=== PATIENT | male | born 1960 | race African-American/Black ===

== ENCOUNTER 2019-05-18 10:30 | Inpatient (IN) | payer OTHER ==
[2019-05-18 10:53] VITALS: BMI 31.4
--- NOTE | 2019-05-18 12:18 | HP ---
CIWA Score Nausea/Vomitin Muscle Tremors: 4-Moderate,w/Arms Extend Anxiety: 4-Mod. Anxious/Guarded Agitation: 1-Slight > Activity Paroxysmal Sweats: No Perspiration Orientation: 0-Oriented Tacttile Disturbances: 2-Mild Itch/Numbness/Burn Auditory Disturbances: 0-None Visual Disturbances: 0-None Headache: 2-Mild CIWA-Ar Total Score: 15 - Admission Criteria OASAS Guidelines: Admission for Medically Managed Detox: Requires at least one of the followin. CIWA greater than 12 2. Seizures within the past 24 hours 3. Delirium tremens within the past 24 hours 4. Hallucinations within the past 24 hours 5. Acute intervention needed for co occurring medical disorder 6. Acute intervention needed for co occurring psychiatric disorder 7. Severe withdrawal that cannot be handled at a lower level of care (continued vomiting, continued diarrhea, abnormal vital signs) requiring intravenous medication and/or fluids 8. Patient presents the following: CIWA greater than 12 Admission Criteria Met: Admission criteria met Admission ROS S - HPI Chief Complaint: It's time, I need to work on my issues and stop self medicating - I can't do it on my own, I need help Allergies/Adverse Reactions: Allergies Allergy/AdvReac Type Severity Reaction Status Date / Time pork derived (porcine) Allergy Unknown "NO PORK" Verified 05/18/19 10:45 No Known Drug Allergies Allergy Verified 05/18/19 10:45 History of Present Illness: 58 yo gentleman here for detox from alcohol - does have black outs but denies seizures, this is one of several admissions for treatment - last here 03/03/18. Patient has his own apartment - lives alone, sees psych and on meds for schizoaffective disorder. States he gets very sick - shaky, vomiting if he tries to stop drinking. States he did well after leaving her in February for a while but 'things happen' and he relapsed a few months ago. He does volunteer work, on disabilty. Exam Limitations: No Limitations - Ebola screening Have you traveled outside of the country in the last 21 days: No Have you had contact with anyone from an Ebola affected area: No - Review of Systems Constitutional: Loss of Appetite, Changes in sleep EENT: reports: No Symptoms Reported Respiratory: reports: No Symptoms reported Cardiac: reports: No Symptoms Reported GI: reports: Nausea, Poor Appetite, Abdominal cramping : reports: Frequency, Hematuria Musculoskeletal: reports: Joint Pain (left hip OA) Integumentary: reports: No Symptoms Reported Neuro: reports: Headache, Tingling, Tremors Endocrine: reports: No Symptoms Reported Hematology: reports: No Symptoms Reported Psychiatric: reports: Judgement Intact, Mood/Affect Appropiate, Orientated x3 Other Systems: Reviewed and Negative Patient History - Patient Medical History Hx Anemia: No Hx Asthma: No Hx Chronic Obstructive Pulmonary Disease (COPD): No Hx Cancer: No Hx Cardiac Disorders: No Hx Congestive Heart Failure: No Hx Hypertension: No Hx Hypercholesterolemia: No Hx Pacemaker: No HX Cerebrovascular Accident: No Hx Seizures: No Hx Diabetes: No (Pre-Diabetic. diet controlled) Hx Gastrointestinal Disorders: No Hx Liver Disease: No Hx Genitourinary Disorders: Yes (hematuria x 27 years - sees urology) Hx Sexually Transmitted Disorders: No Hx Renal Disease (ESRD): No Hx Thyroid Disease: No Hx Human Immunodeficiency Virus (HIV): No (NEGATIVE 2016) Hx Hepatitis C: No Hx Depression: Yes (Celexa - sees psych, last time hospitalized 2006) Hx Suicide Attempt: No Hx Bipolar Disorder: No Hx Schizophrenia: Yes (Schizoaffective Disorder) Other Medical History: hx + PPD treated; left hip OA - Patient Surgical History Past Surgical History: No Hx Neurologic Surgery: No Hx Cataract Extraction: No Hx Cardiac Surgery: No Hx Lung Surgery: No Hx Breast Surgery: No Hx Breast Biopsy: No Hx Abdominal Surgery: No Hx Appendectomy: No Hx Cholecystectomy: No Hx Genitourinary Surgery: No Hx Section: No Hx Orthopedic Surgery: No Anesthesia Reaction: No - PPD History Previous Implant?: Yes (treated 1986) Documented Results: Positive w/o proof Implanted On Prior R Admission?: No Date: 06/12/12 (cxr normal) PPD to be Administered?: No - Reproductive History Patient is a Female of Child Bearing Age (11 -55 yrs old): No - Smoking Cessation Smoking history: Current every day smoker Have you smoked in the past 12 months: Yes Aproximately how many cigarettes per day: 3 Hx Chewing Tobacco Use: No Initiated information on smoking cessation: Yes 'Breaking Loose' booklet given: 05/18/19 (give on floor) - Substance & Tx. History Hx Alcohol Use: Yes Hx Substance Use: Yes Substance Use Type: Alcohol, Cocaine Hx Substance Use Treatment: Yes (detox, rehab) - Substances abused Alcohol Substance route: Oral Frequency: Daily Amount used: 2 pints of vodka Age of first use: 11 Date of last use: 05/17/19 Cocaine Substance route: Smoking Frequency: 3-6 times per week Amount used: $40 Age of first use: 28 Date of last use: 05/16/19 Family Disease History - Family Disease History Family Disease History: Diabetes: Mother (ALCOHOL,), Brother (one ), Sister (one), Heart Disease: Father (ALCOHOL,), Other: Father, Brother, Sister, Son (1 - healthy), Daughter (4 - one dtr bipolar) Admission Physical Exam S - Vital Signs Vital Signs: Vital Signs - 24 hr 05/18/19 05/18/19 10:49 12:02 Temperature 97.8 F 97.8 F Pulse Rate 55 L 55 L Respiratory 20 20 Rate Blood Pressure 157/90 157/90 - Physical General Appearance: Yes: Nourished, Appropriately Dressed, Moderate Distress, Tremorous, Anxious HEENTM: Yes: EOMI, Normocephalic, Normal Voice, Pharynx Normal, Hearing Decreased, Other (missing teeth) Respiratory: Yes: Normal Breath Sounds, No Respiratory Distress Neck: Yes: No masses,lesions,Nodules, Supple Breast: Yes: Breast Exam Deferred Cardiology: Yes: Regular Rhythm, Regular Rate Abdominal: Yes: Soft, Protuberent Genitourinary: Yes: Frequency Back: Yes: Normal Inspection Musculoskeletal: Yes: full range of Motion, Joint Stiffness, Other (left hip OA) Extremities: Yes: Normal Inspection, Non-Tender, Tremors Neurological: Yes: Fully Oriented, Alert, Normal Mood/Affect, Normal Response Integumentary: Yes: Normal Color, Dry, Warm Lymphatic: Yes: Within Normal Limits - Diagnostic (1) Alcohol dependence with uncomplicated withdrawal Current Visit: Yes Status: Chronic (2) Cocaine dependence, uncomplicated Current Visit: Yes Status: Acute (3) Cannabis abuse Current Visit: Yes Status: Acute (4) Nicotine dependence Current Visit: Yes Status: Acute Qualifiers: Nicotine product type: cigarettes Substance use status: in withdrawal Qualified Code(s): F17.213 - Nicotine dependence, cigarettes, with withdrawal (5) Schizoaffective disorder Current Visit: Yes Status: Acute Qualifiers: Schizoaffective disorder type: depressive Qualified Code(s): F25.1 - Schizoaffective disorder, depressive type (6) Microscopic hematuria Current Visit: Yes Status: Chronic (7) PPD positive, treated Current Visit: Yes Status: Chronic (8) Pre-diabetes Current Visit: Yes Status: Acute (9) Osteoarthritis of left hip Current Visit: Yes Status: Chronic Qualifiers: Osteoarthritis type: primary Qualified Code(s): M16.12 - Unilateral primary osteoarthritis, left hip Cleared for Admission [facility] - Detox or Rehab [facility] Level of Care: Medically Managed Detox Regimen/Protocol: Librium Breathalyzer - Breathalyzer Breathalyzer: 0 Urine Drug Screen - Test Device Lot number: [id number] Expiration date: 02/01/21 - Control Is test valid?: Yes - Results Drug screen NEGATIVE: No Urine drug screen results: THC-Marijuana, CASIE-Cocaine Inpatient Rehab Admission - Rehab Decision to Admit Inpatient rehab admission?: No
[2019-05-18] MEDS ORDERED: ACETAMINOPHEN 325 MG TABLET (FP) PO PRN ×2 (12:25)
[2019-05-18] MEDS ORDERED: traZODone HCL 50 MG TABLET (FP) PO PRN (12:25)
[2019-05-18] MEDS ORDERED: MAGNESIUM HYDROX 2400MG/30ML ORAL SUSPENSION 30 ML CUP PO PRN (12:25)
[2019-05-18] MEDS ORDERED: chlordiazePOXIDE HCL 10 MG CAPSULE PO PRN (12:25)
[2019-05-18] MEDS ORDERED: METHOCARBAMOL 500 MG TABLET PO PRN (12:25)
[2019-05-18] MEDS ORDERED: MENTHOL/PHENOL 1 EACH UD MM PRN (12:25)
[2019-05-18] MEDS ORDERED: MELATONIN 5 MG TABLETS PO PRN (12:25)
[2019-05-18] MEDS ORDERED: MAGNESIUM CITRATE 300 ML BOTTLE PO PRN (12:25)
[2019-05-18] MEDS ORDERED: MAG HYDROX/AL HYDROX/SIMETH 30 ML UNIT-DOSE CUP PO PRN (12:25)
[2019-05-18] MEDS ORDERED: hydrOXYzine PAMOATE 25 MG CAPSULE (FP) PO PRN (12:25)
[2019-05-18] MEDS ORDERED: NICOTINE POLACRILEX 2 MG GUM BUC PRN (12:25)
[2019-05-18] MEDS ORDERED: BISMUTH SUBSALICYLATE 524 MG/30 ML UD PO PRN (12:25)
[2019-05-18] MEDS ORDERED: NICOTINE 7 MG/24 HOURS TOPICAL PATCH TD SCH (12:30)
[2019-05-18] MEDS ORDERED: chlordiazePOXIDE HCL 25 MG CAPSULE PO ONE (14:15)
[2019-05-18 14:36] VITALS: BP 153/88; PULSE 49; TEMP 97.2
--- NOTE | 2019-05-18 15:20 | DS ---
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 RISKS OF LEAVING DETOX UNIT AGAINST MEDICAL ADVICE AND PRIOR TO COMPLETION OF DETOX REGIMEN EXPLAINED TO PATIENT. PATIENT WAS AGITATED AT TIME OF DEPARTURE FROM DETOX UNIT, THUS MAKING MEDICAL EVALUATION OF HIM LIMITED AND DIFFICULT. Pertinent Past History: History of Schizoaffective Disorder, Depression, History OA of Left Hip, History Of Hematuria (evaluated by Urologist), History of Positive PPD (Treated) , Pre-Diabetic, Nicotine Dependence. - Physical Exam Results Vital Signs: Vital Signs Temperature 97.2 F L 05/18/19 14:35 Pulse Rate 49 L 05/18/19 14:35 Respiratory Rate 18 05/18/19 14:35 Blood Pressure 153/88 05/18/19 14:35 O2 Sat by Pulse Oximetry (%) Pertinent Admission Physical Exam Findings: WITHDRAWAL SYMPTOMS. DETOX ADMISSION LABS NOT YET DRAWN AT TIME IN WHICH PATIENT LEFT DETOX UNIT. - Medication Discharge Medications: Ambulatory Orders Citalopram Hydrobromide [Celexa -] 20 mg PO DAILY #30 tablet 03/04/18 Risperidone [Risperdal -] 1 mg PO HS #30 tablet 03/04/18 Ibuprofen [Motrin -] 600 mg PO PRN PRN 05/18/19 traZODone HCL [Desyrel -] 50 mg PO HS PRN 05/18/19 - Diagnosis (1) Cannabis abuse Current Visit: Yes Status: Acute (2) Cocaine dependence, uncomplicated Current Visit: Yes Status: Acute (3) Nicotine dependence Current Visit: Yes Status: Acute Qualifiers: Nicotine product type: cigarettes Substance use status: in withdrawal Qualified Code(s): F17.213 - Nicotine dependence, cigarettes, with withdrawal (4) Pre-diabetes Current Visit: Yes Status: Acute (5) Schizoaffective disorder Current Visit: Yes Status: Acute Qualifiers: Schizoaffective disorder type: depressive Qualified Code(s): F25.1 - Schizoaffective disorder, depressive type (6) Alcohol dependence with uncomplicated withdrawal Current Visit: Yes Status: Acute (7) Microscopic hematuria Current Visit: Yes Status: Chronic (8) Osteoarthritis of left hip Current Visit: Yes Status: Chronic Qualifiers: Osteoarthritis type: primary Qualified Code(s): M16.12 - Unilateral primary osteoarthritis, left hip (9) PPD positive, treated Current Visit: Yes Status: Chronic - AMA Did Patient Leave Against Medical Advice: Yes (PATIENT DID NOT WISH TO REMAIN TO COMPLETE DEOTX REGIMEN.)
[2019-05-18] MEDS ORDERED: chlordiazePOXIDE HCL 25 MG CAPSULE PO SCH (21:00)
[2019-05-18] MEDS ORDERED: THIAMINE HCL 100 MG TABLET (FP) PO SCH (22:00)
[2019-05-18] MEDS ORDERED: risperiDONE 1 MG TABLET (FP) PO ONE (22:00)
[2019-05-19] MEDS ORDERED: CITALOPRAM HYDROBROMIDE 20 MG TABLET (FP) PO ONE (10:00)
[2019-05-19] MEDS ORDERED: PRENATAL VITAMINS W/ FOLIC ACID TABLET (FP) PO SCH (10:00)
[2019-05-20] MEDS ORDERED: chlordiazePOXIDE 5 MG CAPSULE PO SCH (05:00)
[2019-05-21] MEDS ORDERED: chlordiazePOXIDE HCL 10 MG CAPSULE PO PRN
[2019-05-21] MEDS ORDERED: chlordiazePOXIDE HCL 10 MG CAPSULE PO SCH (05:00)
[2019-05-22] MEDS ORDERED: chlordiazePOXIDE HCL 10 MG CAPSULE PO ONE (05:00)
== END 2019-05-18 15:18 | disposition left against medical advice (07) | DRG 770 ==
LOC: YASAS 10:30 → Y3N 12:48
PROVIDERS: ADMIT Surgery; ATTEND Surgery
PROC: HZ2ZZZZ Detoxification Services for Substance Abuse Treatment (ICD-10-PCS; principal; 2019-05-18)
DX: F10.230 Alcohol dependence with withdrawal, uncomplicated (principal); F14.20 Cocaine dependence, uncomplicated; F12.10 Cannabis abuse, uncomplicated; F17.210 Nicotine dependence, cigarettes, uncomplicated; F25.9 Schizoaffective disorder, unspecified; M16.12 Unilateral primary osteoarthritis, left hip; R73.03 Prediabetes; R31.29 Other microscopic hematuria; R76.11 Nonspecific reaction to tuberculin skin test without active tuberculosis

== ENCOUNTER 2022-04-11 09:18 | Inpatient (IN) | payer OTHER ==
[2022-04-11 12:25] VITALS: BMI 30.4
[2022-04-11] MEDS ORDERED: MAGNESIUM CITRATE 300 ML BOTTLE PO PRN (14:28)
[2022-04-11] MEDS ORDERED: ONDANSETRON *ODT* 4 MG TABLET SL PRN (14:28)
[2022-04-11] MEDS ORDERED: BISMUTH SUBSALICYLATE 524 MG/30 ML PO PRN (14:28)
[2022-04-11] MEDS ORDERED: MAGNESIUM HYDROX 2400MG/30ML ORAL SUSPENSION 30 ML CUP PO PRN (14:28)
[2022-04-11] MEDS ORDERED: chlordiazePOXIDE HCL 25 MG CAPSULE PO PRN (14:28)
[2022-04-11] MEDS ORDERED: DICYCLOMINE HCL 10 MG CAPSULE PO PRN (14:28)
[2022-04-11] MEDS ORDERED: BENZOCAINE/MENTHOL (CHLORASEPTIC ) LOZENGE MM PRN (14:28)
[2022-04-11] MEDS ORDERED: ACETAMINOPHEN 325 MG TABLET (FP) PO PRN ×2 (14:28)
[2022-04-11] MEDS ORDERED: LOPERAMIDE HCL 2 MG CAPSULE PO PRN (14:28)
[2022-04-11] MEDS ORDERED: MAG HYDROX/AL HYDROX/SIMETH 30 ML UNIT-DOSE CUP PO PRN (14:28)
[2022-04-11] MEDS: NICOTINE 10 MG CARTRIDGE (INHALER) IH PRN (15:36)
[2022-04-11] MEDS: PRENATAL VITAMINS W/ FOLIC ACID TABLET (FP) PO SCH (15:37)
[2022-04-11] MEDS: NICOTINE 21 MG/24 HOURS TOPICAL PATCH TD SCH (15:39)
[2022-04-11 16:37] LABS: ALBUMIN 3.6 g/dl (3.4-5.0); BLOOD UREA NITROGEN 12.5 mg/dL (7-18); CALCIUM 9.3 mg/dL (8.5-10.1)
[2022-04-11 16:41] LABS: CREATININE 0.9 mg/dL (0.55-1.3)
[2022-04-11 16:42] LABS: TOT PROT 7.4 g/dl (6.4-8.2)
[2022-04-11 16:43] LABS: BILIRUBIN,TOTAL 0.4 mg/dL (0.2-1)
[2022-04-11 16:57] LABS: HEMATOCRIT 39.5 % (35.4-49); MCH 29.4 pg (25.7-33.7); MCHC 32.8 g/dl (32.0-35.9); MEAN CELL VOLUME 89.7 fl (80-96); MEAN PLT VOLUME 7.3 fl (7.5-11.1); PLATELET COUNT 317 10^3/uL (134-434); RDW 14.1 % (11.9-15.9); WHITE BLOOD COUNT 4.7 K/mm3 (4.0-10.0)
[2022-04-11] MEDS: chlordiazePOXIDE HCL 25 MG CAPSULE PO SCH ×2 (17:47→23:42)
[2022-04-11] MEDS: hydrOXYzine PAMOATE 25 MG CAPSULE (FP) PO SCH ×2 (17:50→23:44)
[2022-04-11] MEDS ORDERED: traZODone HCL 50 MG TABLET (FP) PO ONE (23:31)
[2022-04-11] MEDS ORDERED: risperiDONE 1 MG TABLET PO ONE (23:33)
[2022-04-11] MEDS: MELATONIN 5 MG TABLETS PO SCH (23:43)
[2022-04-11] MEDS: THIAMINE HCL 100 MG TABLET (FP) PO SCH (23:44)
[2022-04-12] MEDS: hydrOXYzine PAMOATE 25 MG CAPSULE (FP) PO SCH ×5 (05:47→23:15)
[2022-04-12] MEDS: chlordiazePOXIDE HCL 25 MG CAPSULE PO SCH ×4 (05:47→22:30)
[2022-04-12] MEDS ORDERED: traZODone HCL 50 MG TABLET (FP) PO PRN (11:20)
[2022-04-12] MEDS: NICOTINE 21 MG/24 HOURS TOPICAL PATCH TD SCH (11:55)
[2022-04-12] MEDS: PRENATAL VITAMINS W/ FOLIC ACID TABLET (FP) PO SCH (11:55)
[2022-04-12] MEDS: IBUPROFEN 600 MG TABLET (FP) PO PRN ×2 (11:56→22:32)
[2022-04-12] MEDS: CITALOPRAM HYDROBROMIDE 20 MG TABLET PO SCH (12:00)
[2022-04-12] MEDS ORDERED: CITALOPRAM HYDROBROMIDE 20 MG TABLET PO SCH (22:00)
[2022-04-12] MEDS: traZODone HCL 50 MG TABLET (FP) PO SCH (22:30)
[2022-04-12] MEDS: risperiDONE 1 MG TABLET PO SCH (22:30)
[2022-04-12] MEDS: MELATONIN 5 MG TABLETS PO SCH (22:31)
[2022-04-12] MEDS: THIAMINE HCL 100 MG TABLET (FP) PO SCH (23:15)
[2022-04-13] MEDS: chlordiazePOXIDE HCL 25 MG CAPSULE PO SCH ×4 (06:03→22:14)
[2022-04-13] MEDS: hydrOXYzine PAMOATE 25 MG CAPSULE (FP) PO SCH ×5 (06:03→23:52)
[2022-04-13] MEDS ORDERED: PENICILLIN G BENZATHINE 2,400,000 UNIT/4 ML PFS IM ONE (09:30)
[2022-04-13] MEDS: PRENATAL VITAMINS W/ FOLIC ACID TABLET (FP) PO SCH (10:22)
[2022-04-13] MEDS: CITALOPRAM HYDROBROMIDE 20 MG TABLET PO SCH (10:22)
[2022-04-13] MEDS: NICOTINE 21 MG/24 HOURS TOPICAL PATCH TD SCH (10:23)
[2022-04-13] MEDS: METHOCARBAMOL 500 MG TABLET PO PRN (10:27)
[2022-04-13] MEDS: NICOTINE 10 MG CARTRIDGE (INHALER) IH PRN ×3 (10:41→19:56)
[2022-04-13] MEDS: CALCIUM (OYSTER SHELL) 500 MG TABLET (FP) PO SCH (12:17)
[2022-04-13] MEDS: risperiDONE 1 MG TABLET PO SCH (22:14)
[2022-04-13] MEDS: traZODone HCL 50 MG TABLET (FP) PO SCH (22:14)
[2022-04-13] MEDS: THIAMINE HCL 100 MG TABLET (FP) PO SCH (22:14)
[2022-04-13] MEDS: MELATONIN 5 MG TABLETS PO SCH (22:15)
[2022-04-13] MEDS: IBUPROFEN 400 MG TABLET (FP) PO PRN (22:17)
[2022-04-14] MEDS ORDERED: chlordiazePOXIDE HCL 10 MG CAPSULE PO PRN
[2022-04-14] MEDS: hydrOXYzine PAMOATE 25 MG CAPSULE (FP) PO SCH ×5 (06:22→22:46)
[2022-04-14] MEDS: chlordiazePOXIDE HCL 10 MG CAPSULE PO SCH ×4 (06:22→22:46)
[2022-04-14] MEDS: NICOTINE 21 MG/24 HOURS TOPICAL PATCH TD SCH (10:17)
[2022-04-14] MEDS: PRENATAL VITAMINS W/ FOLIC ACID TABLET (FP) PO SCH (10:17)
[2022-04-14] MEDS: CITALOPRAM HYDROBROMIDE 20 MG TABLET PO SCH (10:17)
[2022-04-14] MEDS: METHOCARBAMOL 500 MG TABLET PO PRN (10:17)
[2022-04-14] MEDS: CALCIUM (OYSTER SHELL) 500 MG TABLET (FP) PO SCH (10:17)
[2022-04-14] MEDS: NICOTINE 10 MG CARTRIDGE (INHALER) IH PRN ×2 (10:18→17:31)
[2022-04-14] MEDS: IBUPROFEN 400 MG TABLET (FP) PO PRN (17:31)
[2022-04-14] MEDS: risperiDONE 1 MG TABLET PO SCH (22:45)
[2022-04-14] MEDS: traZODone HCL 50 MG TABLET (FP) PO SCH (22:46)
[2022-04-14] MEDS: THIAMINE HCL 100 MG TABLET (FP) PO SCH (22:46)
[2022-04-15] MEDS: MELATONIN 5 MG TABLETS PO SCH ×2 (00:03→23:13)
[2022-04-15] MEDS: chlordiazePOXIDE HCL 10 MG CAPSULE PO SCH ×2 (05:37→18:24)
[2022-04-15] MEDS: hydrOXYzine PAMOATE 25 MG CAPSULE (FP) PO SCH ×5 (05:37→22:33)
[2022-04-15] MEDS: CALCIUM (OYSTER SHELL) 500 MG TABLET (FP) PO SCH (10:28)
[2022-04-15] MEDS: PRENATAL VITAMINS W/ FOLIC ACID TABLET (FP) PO SCH (10:28)
[2022-04-15] MEDS: METHOCARBAMOL 500 MG TABLET PO PRN (10:29)
[2022-04-15] MEDS: NICOTINE 21 MG/24 HOURS TOPICAL PATCH TD SCH (10:29)
[2022-04-15] MEDS: CITALOPRAM HYDROBROMIDE 20 MG TABLET PO SCH (10:29)
[2022-04-15] MEDS: NICOTINE 10 MG CARTRIDGE (INHALER) IH PRN ×2 (10:30→16:14)
[2022-04-15] MEDS: THIAMINE HCL 100 MG TABLET (FP) PO SCH ×2 (22:32→22:35)
[2022-04-15] MEDS: risperiDONE 1 MG TABLET PO SCH (22:32)
[2022-04-15] MEDS: traZODone HCL 50 MG TABLET (FP) PO SCH (22:32)
[2022-04-16] MEDS ORDERED: chlordiazePOXIDE HCL 10 MG CAPSULE PO ONE (05:00)
[2022-04-16] MEDS: hydrOXYzine PAMOATE 25 MG CAPSULE (FP) PO SCH ×2 (06:38→11:12)
[2022-04-16] MEDS: CALCIUM (OYSTER SHELL) 500 MG TABLET (FP) PO SCH (11:12)
[2022-04-16] MEDS: CITALOPRAM HYDROBROMIDE 20 MG TABLET PO SCH (11:12)
[2022-04-16] MEDS: NICOTINE 21 MG/24 HOURS TOPICAL PATCH TD SCH (11:12)
[2022-04-16] MEDS: PRENATAL VITAMINS W/ FOLIC ACID TABLET (FP) PO SCH (11:12)
[2022-04-16 12:54] VITALS: BP 147/87; PULSE 89; RESP 18; TEMP 98.1
== END 2022-04-16 12:45 | disposition other institution (70) | DRG 774 ==
LOC: YASAS 09:18 → SUATTDRO 09:18 → Y6N 14:06
PROVIDERS: ADMIT Allergy & Immunology; ATTEND Surgery
PROC: HZ2ZZZZ Detoxification Services for Substance Abuse Treatment (ICD-10-PCS; principal; 2022-04-11)
DX: F10.230 Alcohol dependence with withdrawal, uncomplicated (principal); F14.20 Cocaine dependence, uncomplicated; F13.20 Sedative, hypnotic or anxiolytic dependence, uncomplicated; F17.210 Nicotine dependence, cigarettes, uncomplicated; F19.282 Other psychoactive substance dependence with psychoactive substance-induced sleep disorder; F19.24 Other psychoactive substance dependence with psychoactive substance-induced mood disorder; F25.1 Schizoaffective disorder, depressive type; M16.12 Unilateral primary osteoarthritis, left hip; R73.03 Prediabetes; S09.90XA Unspecified injury of head, initial encounter; W19.XXXA Unspecified fall, initial encounter; Y92.9 Unspecified place or not applicable; Z91.014 Allergy to mammalian meats; Z86.19 Personal history of other infectious and parasitic diseases; Z86.11 Personal history of tuberculosis
CPT/HCPCS: 36415; 71045-TC-FY; 80053; 82962; 85027; 86593; 86780; 87811; C9803-CS; J2794; U0003; U0005

== ENCOUNTER 2022-04-15 12:15 | Emergency (ER) | payer OTHER ==
[2022-04-15 12:34] VITALS: BP 129/73; PULSE 72; RESP 18; TEMP 97.1; BMI 28.3
[2022-04-15 13:10] LABS: BASO % 0.8 % (0-2.0); EOS % 1.2 % (0-4.5); HEMOGLOBIN 12.4 GM/dL (11.7-16.9); LYMPH % 13.5 % (8-40); MCH 29.2 pg (25.7-33.7); MCHC 32.7 g/dl (32.0-35.9); MEAN CELL VOLUME 89.4 fl (80-96); MEAN PLT VOLUME 6.7 fl (7.5-11.1); MONO % 7.4 % (3.8-10.2); NEUT % 77.1 % (42.8-82.8); PLATELET COUNT 295 10^3/uL (134-434); RBC 4.25 M/mm3 (4.00-5.60); RDW 14.4 % (11.9-15.9); WHITE BLOOD COUNT 6.7 K/mm3 (4.0-10.0)
[2022-04-15 13:48] LABS: ALBUMIN 3.2 g/dl (3.4-5.0); BLOOD UREA NITROGEN 11.8 mg/dL (7-18); MAGNESIUM 2.2 mg/dL (1.8-2.4)
[2022-04-15 13:51] LABS: CREATININE 0.9 mg/dL (0.55-1.3)
[2022-04-15 13:53] LABS: BILIRUBIN,TOTAL 0.2 mg/dL (0.2-1); TOT PROT 6.6 g/dl (6.4-8.2)
== END 2022-04-15 14:15 ==
LOC: JER 12:15
DX: Z04.3 Encounter for examination and observation following other accident (principal); W01.0XXA Fall on same level from slipping, tripping and stumbling without subsequent striking against object, initial encounter
CPT/HCPCS: 0241U-QW; 36415; 70450-TC; 80053; 82962; 83735; 84484; 85025; 93005; 93010; 99285-25

== ENCOUNTER 2022-04-16 13:50 | Inpatient (IN) | payer OTHER ==
[2022-04-16] MEDS ORDERED: MAGNESIUM HYDROX 2400MG/30ML ORAL SUSPENSION 30 ML CUP PO PRN (15:59)
[2022-04-16] MEDS ORDERED: LOPERAMIDE HCL 2 MG CAPSULE PO PRN (15:59)
[2022-04-16] MEDS ORDERED: P-EPHED 60MG/TRIPROLIDI 2.5MG TABLET PO PRN (15:59)
[2022-04-16] MEDS ORDERED: MAG HYDROX/AL HYDROX/SIMETH 30 ML UNIT-DOSE CUP PO PRN (15:59)
[2022-04-16] MEDS ORDERED: IBUPROFEN 400 MG TABLET (FP) PO PRN (15:59)
[2022-04-16] MEDS ORDERED: MAGNESIUM CITRATE 300 ML BOTTLE PO PRN (15:59)
[2022-04-16] MEDS ORDERED: guaiFENesin 200 MG/10 ML 10 ML UNIT-DOSE CUPS PO PRN (15:59)
[2022-04-16] MEDS ORDERED: ACETAMINOPHEN 325 MG TABLET (FP) PO PRN (15:59)
[2022-04-16] MEDS: hydrOXYzine PAMOATE 25 MG CAPSULE (FP) PO SCH ×2 (17:57→21:11)
[2022-04-16] MEDS: risperiDONE 1 MG TABLET PO SCH (21:10)
[2022-04-16] MEDS: THIAMINE HCL 100 MG TABLET (FP) PO SCH (21:11)
[2022-04-16] MEDS: MELATONIN 5 MG TABLETS PO SCH (21:11)
[2022-04-17] MEDS: hydrOXYzine PAMOATE 25 MG CAPSULE (FP) PO SCH ×5 (06:37→21:03)
[2022-04-17] MEDS: NICOTINE 10 MG CARTRIDGE (INHALER) IH PRN (06:45)
[2022-04-17] MEDS: NICOTINE 7 MG/24 HOURS TOPICAL PATCH TD SCH (12:35)
[2022-04-17] MEDS: CITALOPRAM HYDROBROMIDE 20 MG TABLET PO SCH (12:35)
[2022-04-17] MEDS: PRENATAL VITAMINS W/ FOLIC ACID TABLET (FP) PO SCH (12:36)
[2022-04-17] MEDS: THIAMINE HCL 100 MG TABLET (FP) PO SCH (21:03)
[2022-04-17] MEDS: MELATONIN 5 MG TABLETS PO SCH (21:03)
[2022-04-17] MEDS: risperiDONE 1 MG TABLET PO SCH (21:03)
[2022-04-17] MEDS: IBUPROFEN 600 MG TABLET (FP) PO PRN (21:05)
[2022-04-17] MEDS: traZODone HCL 50 MG TABLET (FP) PO PRN (21:06)
[2022-04-18] MEDS: NICOTINE 10 MG CARTRIDGE (INHALER) IH PRN ×2 (06:16→10:44)
[2022-04-18] MEDS: hydrOXYzine PAMOATE 25 MG CAPSULE (FP) PO SCH ×5 (06:16→21:40)
[2022-04-18] MEDS: IBUPROFEN 600 MG TABLET (FP) PO PRN ×2 (06:17→21:42)
[2022-04-18] MEDS: CITALOPRAM HYDROBROMIDE 20 MG TABLET PO SCH (10:44)
[2022-04-18] MEDS: PRENATAL VITAMINS W/ FOLIC ACID TABLET (FP) PO SCH (10:44)
[2022-04-18] MEDS: NICOTINE 7 MG/24 HOURS TOPICAL PATCH TD SCH (10:45)
[2022-04-18] MEDS: risperiDONE 1 MG TABLET PO SCH (21:40)
[2022-04-18] MEDS: MELATONIN 5 MG TABLETS PO SCH (21:41)
[2022-04-18] MEDS: THIAMINE HCL 100 MG TABLET (FP) PO SCH (21:41)
[2022-04-18] MEDS: traZODone HCL 50 MG TABLET (FP) PO PRN (21:42)
[2022-04-19] MEDS: hydrOXYzine PAMOATE 25 MG CAPSULE (FP) PO SCH ×5 (06:09→21:37)
[2022-04-19] MEDS: NICOTINE 10 MG CARTRIDGE (INHALER) IH PRN ×3 (06:10→19:48)
[2022-04-19 06:53] VITALS: RESP 18
[2022-04-19] MEDS: NICOTINE 7 MG/24 HOURS TOPICAL PATCH TD SCH (10:41)
[2022-04-19] MEDS: PRENATAL VITAMINS W/ FOLIC ACID TABLET (FP) PO SCH (10:42)
[2022-04-19] MEDS: IBUPROFEN 600 MG TABLET (FP) PO PRN (10:42)
[2022-04-19] MEDS: CITALOPRAM HYDROBROMIDE 20 MG TABLET PO SCH (15:03)
[2022-04-19] MEDS: risperiDONE 1 MG TABLET PO SCH (21:37)
[2022-04-19] MEDS: MELATONIN 5 MG TABLETS PO SCH (21:37)
[2022-04-19] MEDS: THIAMINE HCL 100 MG TABLET (FP) PO SCH (21:38)
[2022-04-19] MEDS: traZODone HCL 50 MG TABLET (FP) PO PRN (21:39)
[2022-04-20] MEDS: hydrOXYzine PAMOATE 25 MG CAPSULE (FP) PO SCH ×5 (06:41→21:11)
[2022-04-20] MEDS: NICOTINE 10 MG CARTRIDGE (INHALER) IH PRN ×5 (06:43→21:11)
[2022-04-20] MEDS: CITALOPRAM HYDROBROMIDE 20 MG TABLET PO SCH (10:05)
[2022-04-20] MEDS: PRENATAL VITAMINS W/ FOLIC ACID TABLET (FP) PO SCH (10:06)
[2022-04-20] MEDS: NICOTINE 7 MG/24 HOURS TOPICAL PATCH TD SCH (10:06)
[2022-04-20] MEDS: IBUPROFEN 600 MG TABLET (FP) PO PRN (10:06)
[2022-04-20] MEDS: MELATONIN 5 MG TABLETS PO SCH (21:12)
[2022-04-20] MEDS: risperiDONE 1 MG TABLET PO SCH (21:12)
[2022-04-20] MEDS: THIAMINE HCL 100 MG TABLET (FP) PO SCH (21:12)
[2022-04-20] MEDS: traZODone HCL 50 MG TABLET (FP) PO PRN (21:13)
[2022-04-21] MEDS: hydrOXYzine PAMOATE 25 MG CAPSULE (FP) PO SCH ×5 (06:27→21:30)
[2022-04-21] MEDS: NICOTINE 10 MG CARTRIDGE (INHALER) IH PRN ×4 (06:27→21:31)
[2022-04-21] MEDS: PRENATAL VITAMINS W/ FOLIC ACID TABLET (FP) PO SCH (10:47)
[2022-04-21] MEDS: NICOTINE 7 MG/24 HOURS TOPICAL PATCH TD SCH (10:47)
[2022-04-21] MEDS: CITALOPRAM HYDROBROMIDE 20 MG TABLET PO SCH (10:47)
[2022-04-21] MEDS: traZODone HCL 50 MG TABLET (FP) PO PRN (21:30)
[2022-04-21] MEDS: THIAMINE HCL 100 MG TABLET (FP) PO SCH (21:30)
[2022-04-21] MEDS: IBUPROFEN 600 MG TABLET (FP) PO PRN (21:30)
[2022-04-21] MEDS: MELATONIN 5 MG TABLETS PO SCH (21:30)
[2022-04-21] MEDS: risperiDONE 1 MG TABLET PO SCH (21:30)
[2022-04-22] MEDS: NICOTINE 10 MG CARTRIDGE (INHALER) IH PRN ×5 (06:02→21:22)
[2022-04-22] MEDS: hydrOXYzine PAMOATE 25 MG CAPSULE (FP) PO SCH ×5 (06:02→21:21)
[2022-04-22] MEDS: PRENATAL VITAMINS W/ FOLIC ACID TABLET (FP) PO SCH (09:58)
[2022-04-22] MEDS: CITALOPRAM HYDROBROMIDE 20 MG TABLET PO SCH (09:58)
[2022-04-22] MEDS: NICOTINE 7 MG/24 HOURS TOPICAL PATCH TD SCH (09:59)
[2022-04-22] MEDS ORDERED: COLLOIDAL OATMEAL 1 BAR EACH TP PRN (13:57)
[2022-04-22] MEDS: risperiDONE 1 MG TABLET PO SCH (21:20)
[2022-04-22] MEDS: THIAMINE HCL 100 MG TABLET (FP) PO SCH (21:21)
[2022-04-22] MEDS: MELATONIN 5 MG TABLETS PO SCH (21:21)
[2022-04-22] MEDS: IBUPROFEN 600 MG TABLET (FP) PO PRN (21:21)
[2022-04-23] MEDS: NICOTINE 10 MG CARTRIDGE (INHALER) IH PRN ×4 (06:38→21:49)
[2022-04-23] MEDS: hydrOXYzine PAMOATE 25 MG CAPSULE (FP) PO SCH ×5 (06:38→21:47)
[2022-04-23] MEDS: PRENATAL VITAMINS W/ FOLIC ACID TABLET (FP) PO SCH (10:50)
[2022-04-23] MEDS: CITALOPRAM HYDROBROMIDE 20 MG TABLET PO SCH (10:50)
[2022-04-23] MEDS: NICOTINE 7 MG/24 HOURS TOPICAL PATCH TD SCH (10:50)
[2022-04-23] MEDS: risperiDONE 1 MG TABLET PO SCH (21:47)
[2022-04-23] MEDS: MELATONIN 5 MG TABLETS PO SCH (21:47)
[2022-04-23] MEDS: THIAMINE HCL 100 MG TABLET (FP) PO SCH (21:47)
[2022-04-24] MEDS: hydrOXYzine PAMOATE 25 MG CAPSULE (FP) PO SCH ×5 (06:14→21:27)
[2022-04-24] MEDS: NICOTINE 10 MG CARTRIDGE (INHALER) IH PRN ×4 (06:15→21:29)
[2022-04-24] MEDS: CITALOPRAM HYDROBROMIDE 20 MG TABLET PO SCH (09:50)
[2022-04-24] MEDS: PRENATAL VITAMINS W/ FOLIC ACID TABLET (FP) PO SCH (09:50)
[2022-04-24] MEDS: NICOTINE 7 MG/24 HOURS TOPICAL PATCH TD SCH (09:51)
[2022-04-24] MEDS: MELATONIN 5 MG TABLETS PO SCH (21:27)
[2022-04-24] MEDS: THIAMINE HCL 100 MG TABLET (FP) PO SCH (21:27)
[2022-04-24] MEDS: traZODone HCL 50 MG TABLET (FP) PO PRN (21:28)
[2022-04-24] MEDS: risperiDONE 1 MG TABLET PO SCH (21:28)
[2022-04-24] MEDS: IBUPROFEN 600 MG TABLET (FP) PO PRN (21:28)
[2022-04-25] MEDS: hydrOXYzine PAMOATE 25 MG CAPSULE (FP) PO SCH ×2 (06:24→10:30)
[2022-04-25] MEDS: NICOTINE 10 MG CARTRIDGE (INHALER) IH PRN ×2 (06:26→10:04)
[2022-04-25 06:43] VITALS: BP 129/84; PULSE 79; TEMP 97.7
[2022-04-25] MEDS: CITALOPRAM HYDROBROMIDE 20 MG TABLET PO SCH (10:03)
[2022-04-25] MEDS: PRENATAL VITAMINS W/ FOLIC ACID TABLET (FP) PO SCH (10:03)
[2022-04-25] MEDS: NICOTINE 7 MG/24 HOURS TOPICAL PATCH TD SCH (10:04)
== END 2022-04-25 10:45 | disposition home or self-care (01) | DRG 772 ==
LOC: YASAS 13:50 → Y3W 13:51
PROVIDERS: ADMIT Allergy & Immunology; ATTEND Psychiatry & Neurology Pain Medicine
PROC: HZ42ZZZ Group Counseling for Substance Abuse Treatment, Cognitive-Behavioral (ICD-10-PCS; principal; 2022-04-16)
DX: F10.20 Alcohol dependence, uncomplicated (principal); F14.20 Cocaine dependence, uncomplicated; F13.20 Sedative, hypnotic or anxiolytic dependence, uncomplicated; F17.210 Nicotine dependence, cigarettes, uncomplicated; F25.9 Schizoaffective disorder, unspecified; F32.A Depression, unspecified; M16.12 Unilateral primary osteoarthritis, left hip; R73.03 Prediabetes
CPT/HCPCS: 82962; J2794